=== PATIENT | female | born 1975 | race African-American/Black ===

== ENCOUNTER 2018-05-04 13:13 | Emergency (ER) | payer OTHER, SELFPAY | END 2018-05-04 13:32 | disposition home or self-care (01) | LOC: SCSER 13:13 | DX: S46.911A Strain of unspecified muscle, fascia and tendon at shoulder and upper arm level, right arm, initial encounter (principal); J45.909 Unspecified asthma, uncomplicated; X50.0XXA Overexertion from strenuous movement or load, initial encounter | CPT/HCPCS: 99283 ==

== ENCOUNTER 2022-03-04 10:59 | Outpatient (CLI) | payer OTHER | END 2022-03-04 11:00 | disposition home or self-care (01) | LOC: BICRAD 10:59 | PROVIDERS: ATTEND Nurse Practitioner Family | DX: R10.30 Lower abdominal pain, unspecified (principal) | CPT/HCPCS: 74018 ==

== ENCOUNTER 2024-05-08 12:39 | Outpatient (CLI) | payer OTHER | END 2024-05-08 12:40 | disposition home or self-care (01) | LOC: BICMAMMO 12:39 | DX: Z12.31 Encounter for screening mammogram for malignant neoplasm of breast (principal); R92.1 Mammographic calcification found on diagnostic imaging of breast; Z80.3 Family history of malignant neoplasm of breast | CPT/HCPCS: 77063; 77067 ==

== ENCOUNTER 2024-07-03 08:48 | Outpatient (CLI) | payer OTHER | END 2024-07-03 08:49 | disposition home or self-care (01) | LOC: BICMAMMO 08:48 | DX: R92.1 Mammographic calcification found on diagnostic imaging of breast (principal) | CPT/HCPCS: G0279 ==